=== PATIENT | female | born 1945 | race Caucasian/White ===

== ENCOUNTER → 2019-11-21 | Outpatient (CLI) | payer MEDICARE ==
[2019-11-21 15:33] LABS: ALBUMIN 3.6 gm/dl (3.1-4.5); BUN 16 mg/dl (7-24); CHLORIDE 108 mmol/L (98-107); CREATININE 0.91 mg/dL (0.55-1.02); SODIUM 140 mmol/L (136-145)
== END | disposition home or self-care (01) ==
LOC: LAB 14:46
PROVIDERS: ATTEND Internal Medicine
DX: E87.5 Hyperkalemia (principal)

== ENCOUNTER → 2020-03-27 | Outpatient (CLI) | payer MEDICARE ==
[2020-03-27 09:37] LABS: HEMATOCRIT 44.3 % (37.0-47.0)
[2020-03-27 10:08] LABS: POTASSIUM 4.2 mmol/L (3.5-5.1)
== END | disposition home or self-care (01) ==
LOC: LAB 09:13
PROVIDERS: ATTEND Orthopaedic Surgery Sports Medicine
DX: Z01.810 Encounter for preprocedural cardiovascular examination (principal); Z01.811 Encounter for preprocedural respiratory examination; Z01.812 Encounter for preprocedural laboratory examination; J43.9 Emphysema, unspecified; M19.90 Unspecified osteoarthritis, unspecified site

== ENCOUNTER 2020-12-26 04:53 | Emergency (ER) | payer MEDICARE ==
[2020-12-26 05:41] LABS: ALBUMIN 3.4 gm/dl (3.1-4.5); ALKALINE PHOSPHATASE 72 U/L (45-117); BUN 17 mg/dl (7-24); CHLORIDE 101 mmol/L (98-107); CREATININE 1.01 mg/dL (0.55-1.02); SGOT/AST 26 IU/L (3-35); SGPT/ALT 28 U/L (12-78); SODIUM 134 mmol/L (136-145); TOTAL PROTEIN 7.1 gm/dL (6.4-8.2)
[2020-12-26 06:01] LABS: BASO % 0.3 % (0.0-1.0); HEMATOCRIT 43.5 % (37.0-47.0); LYMPH # 1.2 10*3/uL (1.3-4.4); LYMPH % 30.7 % (27.0-41.0); MEAN CORPUSCULAR HGB 28.1 pg (27.0-31.0); MEAN CORPUSCULAR HGB CONC 33.1 g/dl (33.0-37.0); MEAN PLATELET VOLUME 10.8 fl (9.6-12.3); MONO # 0.4 10*3/uL (0.1-1.0); MONO % 10.9 % (3.0-9.0); NEUT # 2.2 10*3/uL (2.3-7.9); NEUT % 57.1 % (47.0-73.0); PLATELET COUNT AUTOMATED 120 10*3/uL (130-400); RED BLOOD COUNT 5.12 10*6/uL (4.10-5.10); RED CELL DISTRI WIDTH 13.2 % (0-14.5); WHITE BLOOD COUNT 3.9 10*3/uL (4.8-10.8)
== END 2020-12-26 06:24 | disposition home or self-care (01) ==
LOC: ED 04:53
PROVIDERS: Internal Medicine
DX: U07.1 COVID-19 (principal); D72.819 Decreased white blood cell count, unspecified; R79.82 Elevated C-reactive protein (CRP)

== ENCOUNTER → 2021-01-05 | Outpatient (CLI) | payer MEDICARE ==
[2021-01-05 10:26] LABS: HEMATOCRIT 40.5 % (37.0-47.0); MEAN CELL VOLUME 83.9 fl (81.0-99.0); MEAN CORPUSCULAR HGB 27.7 pg (27.0-31.0); MEAN CORPUSCULAR HGB CONC 33.1 g/dl (33.0-37.0); MEAN PLATELET VOLUME 9.1 fl (9.6-12.3); PLATELET COUNT AUTOMATED 384 10*3/uL (130-400); RED BLOOD COUNT 4.83 10*6/uL (4.10-5.10); RED CELL DISTRI WIDTH 13.1 % (0-14.5)
[2021-01-05 10:44] LABS: ATYPICAL LYMPHS 7 % (0-0); BASOPHILS 1 % (0-1); TOTAL CELLS COUNTED 100 #CELLS
[2021-01-05 10:46] LABS: BURR CELLS FEW; PLATELET SUFFICIENCY NORMAL (NORMAL)
== END | disposition home or self-care (01) ==
LOC: LAB 10:08
PROVIDERS: ATTEND Family Medicine
DX: R06.02 Shortness of breath (principal)

== ENCOUNTER → 2023-04-28 | Outpatient (CLI) | payer MEDICARE ==
[2023-04-28 07:32] LABS: BASO % 0.2 % (0.0-1.0); EOS # 0.8 10*3/uL (0.0-0.4); EOS % 9.1 % (1.0-4.0); HEMATOCRIT 42.8 % (37.0-47.0); LYMPH # 3.6 10*3/uL (1.3-4.4); LYMPH % 41.2 % (27.0-41.0); MEAN CORPUSCULAR HGB 28.3 pg (27.0-31.0); MEAN CORPUSCULAR HGB CONC 31.8 g/dl (33.0-37.0); MONO # 0.8 10*3/uL (0.1-1.0); MONO % 9.3 % (3.0-9.0); NEUT # 3.5 10*3/uL (2.3-7.9); NEUT % 39.5 % (47.0-73.0); PLATELET COUNT AUTOMATED 231 10*3/uL (130-400); RED BLOOD COUNT 4.81 10*6/uL (4.10-5.10); RED CELL DISTRI WIDTH 13.4 % (0-14.5); WHITE BLOOD COUNT 8.8 10*3/uL (4.8-10.8)
[2023-04-28 07:56] LABS: ALKALINE PHOSPHATASE 56 U/L (46-116); BUN 12 mg/dl (9-23); CHLORIDE 108 mmol/L (98-107); POTASSIUM 3.9 mmol/L (3.4-5.1); SGPT/ALT 10 U/L (5-49); TOTAL PROTEIN 6.1 gm/dL (6.0-8.0)
== END | disposition home or self-care (01) ==
LOC: LAB 07:02
PROVIDERS: ATTEND Family Medicine
DX: L29.9 Pruritus, unspecified (principal)

== ENCOUNTER → 2023-06-14 | Outpatient (CLI) | payer MEDICARE | END | disposition home or self-care (01) | LOC: LAB 07:20 | PROVIDERS: ATTEND Family Medicine | DX: E78.5 Hyperlipidemia, unspecified (principal) ==

== ENCOUNTER 2023-07-10 12:44 | Emergency (ER) | payer MEDICARE ==
[~2023-07-10] VITALS: Ht 165.1 cm; Wt 95.3 kg
[2023-07-10] MEDS ORDERED: [UNRECOGNIZED DRUG - OTHER] MC (14:11)
[2023-07-10] MEDS ORDERED: VIBRAMYCIN100 MG PO (14:11)
== END 2023-07-10 14:29 | disposition home or self-care (01) ==
LOC: ED 12:44
DX: L02.31 Cutaneous abscess of buttock (principal); E03.9 Hypothyroidism, unspecified; Z91.041 Radiographic dye allergy status; Z88.2 Allergy status to sulfonamides; Z88.8 Allergy status to other drugs, medicaments and biological substances

== ENCOUNTER → 2023-07-11 | Outpatient (CLI) | payer MEDICARE ==
[~2023-07-11] MED LIST: VIBRAMYCIN100 MG PO; [UNRECOGNIZED DRUG - OTHER] MC
== END | disposition home or self-care (01) ==
LOC: WOUNDCARE 08:54
PROVIDERS: ATTEND Nurse Practitioner Family
DX: T81.30XA Disruption of wound, unspecified, initial encounter (principal); L02.31 Cutaneous abscess of buttock; L03.317 Cellulitis of buttock; E03.9 Hypothyroidism, unspecified; R52 Pain, unspecified; Z96.612 Presence of left artificial shoulder joint; Z79.899 Other long term (current) drug therapy; Y83.8 Other surgical procedures as the cause of abnormal reaction of the patient, or of later complication, without mention of misadventure at the time of the procedure; Y92.89 Other specified places as the place of occurrence of the external cause

== ENCOUNTER → 2023-07-18 | Outpatient (CLI) | payer MEDICARE | END | disposition home or self-care (01) | LOC: WOUNDCARE 00:42 | PROVIDERS: ATTEND Nurse Practitioner Family | DX: T81.30XD Disruption of wound, unspecified, subsequent encounter (principal); L02.31 Cutaneous abscess of buttock; L03.317 Cellulitis of buttock; R52 Pain, unspecified; E03.9 Hypothyroidism, unspecified; Z96.612 Presence of left artificial shoulder joint; Y83.8 Other surgical procedures as the cause of abnormal reaction of the patient, or of later complication, without mention of misadventure at the time of the procedure ==

== ENCOUNTER → 2023-07-20 | Outpatient (CLI) | payer MEDICARE | END | disposition home or self-care (01) | LOC: WOUNDCARE 09:43 | PROVIDERS: ATTEND Nurse Practitioner Family | DX: T81.30XD Disruption of wound, unspecified, subsequent encounter (principal); L02.31 Cutaneous abscess of buttock; L03.317 Cellulitis of buttock; E03.9 Hypothyroidism, unspecified; R52 Pain, unspecified; Z96.612 Presence of left artificial shoulder joint; Z79.899 Other long term (current) drug therapy; Y83.8 Other surgical procedures as the cause of abnormal reaction of the patient, or of later complication, without mention of misadventure at the time of the procedure ==

== ENCOUNTER → 2023-08-01 | Outpatient (CLI) | payer MEDICARE | END | disposition home or self-care (01) | LOC: WOUNDCARE 00:55 | PROVIDERS: ATTEND Nurse Practitioner Family | DX: T81.30XD Disruption of wound, unspecified, subsequent encounter (principal); L02.31 Cutaneous abscess of buttock; L03.317 Cellulitis of buttock; E03.9 Hypothyroidism, unspecified; R52 Pain, unspecified; Z96.612 Presence of left artificial shoulder joint; Z79.899 Other long term (current) drug therapy; Y83.8 Other surgical procedures as the cause of abnormal reaction of the patient, or of later complication, without mention of misadventure at the time of the procedure ==

== ENCOUNTER → 2023-11-21 | Outpatient (CLI) | payer MEDICARE ==
[2023-11-21 16:12] LABS: THYROXINE (T4) TOTAL 9.6 ug/dl (4.5-10.9)
== END | disposition home or self-care (01) ==
LOC: LAB 14:46
PROVIDERS: ATTEND Family Medicine
DX: I49.9 Cardiac arrhythmia, unspecified (principal); I49.3 Ventricular premature depolarization

== ENCOUNTER → 2023-12-26 | Outpatient (CLI) | payer MEDICARE ==
[2023-12-26 09:45] LABS: THYROXINE (T4) TOTAL 6.2 ug/dl (4.5-10.9)
== END | disposition home or self-care (01) ==
LOC: LAB 08:56
PROVIDERS: ATTEND Family Medicine
DX: E03.9 Hypothyroidism, unspecified (principal); Z79.899 Other long term (current) drug therapy

== ENCOUNTER → 2024-02-19 | Outpatient (CLI) | payer MEDICARE ==
[2024-02-19 09:12] LABS: THYROXINE (T4) TOTAL 4.4 ug/dl (4.5-10.9)
== END | disposition home or self-care (01) ==
LOC: LAB 07:34
PROVIDERS: ATTEND Family Medicine
DX: E03.9 Hypothyroidism, unspecified (principal)

== ENCOUNTER → 2024-04-10 | Outpatient (CLI) | payer MEDICARE ==
[2024-04-10 14:43] LABS: THYROXINE (T4) TOTAL 8.6 ug/dl (4.5-10.9)
== END | disposition home or self-care (01) ==
LOC: LAB 07:32
PROVIDERS: ATTEND Family Medicine
DX: E03.9 Hypothyroidism, unspecified (principal)

== ENCOUNTER → 2024-05-13 | Outpatient (CLI) | payer MEDICARE ==
[2024-05-13 08:29] LABS: THYROXINE (T4) TOTAL 6.2 ug/dl (4.5-10.9)
== END | disposition home or self-care (01) ==
LOC: LAB 07:04
PROVIDERS: ATTEND Family Medicine
DX: E05.00 Thyrotoxicosis with diffuse goiter without thyrotoxic crisis or storm (principal)

== ENCOUNTER → 2024-07-03 | Outpatient (CLI) | payer MEDICARE ==
[2024-07-03 08:15] LABS: THYROXINE (T4) TOTAL 5.5 ug/dl (4.5-10.9)
== END | disposition home or self-care (01) ==
LOC: LAB 07:14
PROVIDERS: ATTEND Family Medicine
DX: E03.9 Hypothyroidism, unspecified (principal)

== ENCOUNTER → 2024-08-02 | Outpatient (CLI) | payer MEDICARE ==
[2024-08-02 08:06] LABS: THYROXINE (T4) TOTAL 5.3 ug/dl (4.5-10.9)
== END | disposition home or self-care (01) ==
LOC: LAB 07:07
PROVIDERS: ATTEND Family Medicine
DX: E03.9 Hypothyroidism, unspecified (principal)

== ENCOUNTER → 2024-10-25 | Outpatient (CLI) | payer MEDICARE ==
[2024-10-25 07:44] LABS: THYROXINE (T4) TOTAL 6.0 ug/dl (4.5-10.9)
== END | disposition home or self-care (01) ==
LOC: LAB 07:04
PROVIDERS: ATTEND Family Medicine
DX: E03.9 Hypothyroidism, unspecified (principal)

== ENCOUNTER → 2024-11-01 | Outpatient (CLI) | payer MEDICARE | END | disposition home or self-care (01) | LOC: LAB 07:15 | PROVIDERS: ATTEND Family Medicine | DX: E03.9 Hypothyroidism, unspecified (principal) ==